=== PATIENT | female | born 1955 | race Caucasian/White ===

== ENCOUNTER → 2017-03-31 | Day surgery (SDC) | payer OTHER ==
--- NOTE | 2017-03-30 11:49 | MH ---
cc: Alejandra VALADEZ DATE OF ADMISSION 03/31/2017 ADMITTING DIAGNOSIS Torn medial meniscus right knee now for arthroscopy right knee. ADMISSION HISTORY AND PHYSICAL This pleasant 62-year female is being admitted today for arthroscopic surgery right knee due to a torn medial meniscus and chondromalacia. OTHER PAST HISTORY The patient has a history of: 1. Anxiety 2. Arthritis 3. Depression 4. Fibromyalgia 5. Back pain CURRENT MEDICATIONS Include: 1. Lexapro 2. Vitamin D 3. Flexeril PAST SURGERIES Includes a hysterectomy. REVIEW OF SYSTEMS Noncontributory FAMILY HISTORY Noncontributory. She does not smoke or drink. ALLERGIES She has no known allergies. PHYSICAL EXAMINATION We find a 62-year female well-developed, well-nourished oriented x3 complaining of pain in her right knee. VITAL SIGNS: Blood pressure 120/82, pulse 80 and regular, respirations 18, temperature 97.9, pulse oximetry 98% on room air. HEENT: Eyes PERRL, EOMI. Ears, nose, mouth clear. NECK: Supple. LUNGS: Clear. HEART: Regular rate. ABDOMEN: Soft. Positive bowel sounds, nontender. EXTREMITIES: Reveals the right knee be tender on palpation on the medial joint surface. She is neurovascularly intact to her toes. IMPRESSION Torn medial meniscus right knee along with chondromalacia. PLAN Admission for arthroscopy right knee today. The patient given prescription for postop pain control in the office. Understands she is to use Hibiclens scrub and Bactroban preoperatively. MD ALETHA Dumont/SHENG /11:34 AM /11:37 AM
[~2017-03-31] VITALS: Ht 170.2 cm; Wt 101.9 kg
[~2017-03-31] MED LIST: *morphine SULFATE 8 MG/ML PERIprocedure ONLY ONE; ACETAMINOPHEN 1000 MG/100 ML VIAL IV ONE; ACETAMINOPHEN/HYDROcodone 325 MG/5 MG TAB PO PRN; BUPIVACAINE HCL PF 0.25% 30 ML VIAL ONE; CHLORHEXIDINE GLUCONATE 2 % 1 PACK (2 CLOTHS) TOPICAL PRN; CHLORHEXIDINE GLUCONATE 4% SOLN 120 ML BTL TOPICAL SCH; CHOL1CAP34 PO; CYCL1TAB29 PO; DEXAMETHASONE SOD PHOS 4 MG/ML VIAL ONE; DICL50TA3 PO; DO NOT ADM ANY ANTICOAGULANT DRUGS PRN; ESTR1TAB PO; FAMOTIDINE 20 MG/2 ML VIAL ONE; INSULIN HUMAN REGULAR 1,000 UNITS/10 ML VIAL SQ PRN; LACTATED RINGER'S 1000 ML INJ 1,000 ML IV ONE; LACTATED RINGER'S 1000 ML IV PRN; LEXA10TA PO; MEPERIDINE HCL 50 MG/ML VIAL IM PRN; METOPROLOL TARTRATE 25 MG TAB PO PRN; MIDAZOLAM HCL 2 MG/2 ML VIAL ONE; MULT-65 PO; ONDANSETRON HCL 4 MG/2 ML VIAL IV PUSH ONE; ONDANSETRON ODT 4 MG TAB PO PRN; POVIDONE IODINE 5% (ANTISEPSIS KIT) 4 APPLICATIONS EACH NARE PRN; PROPOFOL 200 MG/20 ML AMP IV ONE; SODIUM CHLORID 0.9% 500 ML IV PRN; ceFAZolin 2 GM PREMIX 50 ML IV SCH; fentaNYL CITRATE 250 MCG/5 ML AMP ONE
[2017-03-31 06:57] VITALS: BP 126/69; PULSE 78; RESP 20; TEMP 97.6; O2SAT 97
[2017-03-31 07:03] LABS: AUTOMATED NEUTROPHIL # 2.1 TH/MM3 (1.8-7.7); BASOPHIL % 0.9 % (0.0-2.0); EOSINOPHIL # 0.1 TH/MM3 (0-0.4); EOSINOPHIL % 2.3 % (0.0-4.0); HEMATOCRIT 39.4 % (35.0-46.0); HEMO FLAGS DIFF FINAL; LYMPH % 38.2 % (9.0-44.0); LYMPHOCYTE # 1.6 TH/MM3 (1.0-4.8); MEAN CELL VOLUME 91.9 FL (80.0-100.0); MEAN CORPUSCULAR HEMOGLOBIN 31.1 PG (27.0-34.0); MEAN CORPUSCULAR HGB CONC 33.8 % (32.0-36.0); MONO % 9.6 % (0.0-8.0); PLATELET COUNT 202 TH/MM3 (150-450); RED BLOOD COUNT 4.29 MIL/MM3 (4.00-5.30); RED CELL DISTRIBUTION WIDTH 12.9 % (11.6-17.2); WHITE BLOOD COUNT 4.2 TH/MM3 (4.0-11.0)
[2017-03-31 07:25] LABS: ALT (GPT) 23 U/L (10-53)
[2017-03-31 07:28] LABS: ALKALINE PHOSPHATASE 83 U/L (45-117); TOTAL BILIRUBIN ADULT 0.5 MG/DL (0.2-1.0)
[2017-03-31 07:31] LABS: ANION GAP 5 MEQ/L (5-15); AST (GOT) 24 U/L (15-37); BICARBONATE 27.8 MEQ/L (21.0-32.0); BLOOD UREA NITROGEN 15 MG/DL (7-18); CHLORIDE 105 MEQ/L (98-107); GLOMERULAR FILTRATION RATE 81 ML/MIN (>89); POTASSIUM 4.3 MEQ/L (3.5-5.1); SODIUM (NA) 138 MEQ/L (136-145)
[2017-03-31 08:01] LABS: INTERNATIONAL NORMALIZED RATIO 0.9 RATIO; PROTHROMBIN TIME - PATIENT 10.4 SEC (9.8-11.6)
--- NOTE | 2017-03-31 08:54 | EKG ---
Date Performed: 03/31/2017 Time Performed: 06:53:58 PTAGE: 62 years EKG: Sinus rhythm LOW QRS VOLTAGE IN PRECORDIAL LEADS BORDERLINE ECG PREVIOUS TRACING : 10/05/2010 10.51 Compared to prior tracing no significant change DOCTOR: Norm Wen Interpretating Date/Time 03/31/2017 08:51:04
--- NOTE | 2017-03-31 09:48 | HHI.PR ---
Immediate Post Op Note Procedure Date: Mar 31, 2017 Pre Op Diagnosis: Torn medial meniscus Post Op Diagnosis: Torn Medial meniscus Chondromalacia Severe degenerative osteoarthritis Surgeon: Rodrigue Rea MD Orthopaedic Physician Assistant(s): Renetta BACON Procedure: Right Knee Arthroscopy with debridement Complications: none Specimen(s) removed: none Estimated blood loss: 10cc Anesthesia: General Drains: None Patient to: PACU Patient Condition: Good Date/Time of Procedure: SEE SURGICAL CARE RECORD Renetta Marshall Mar 31, 2017 09:48
[2017-03-31 10:50] VITALS: BP 125/74; PULSE 78; RESP 18; TEMP 97.1; O2SAT 98
--- NOTE | 2017-03-31 13:07 | MP ---
cc: Alejandra VALADEZ M.D. Corrected: 04/14/17 DATE OF SURGERY 03/31/2017 PREOPERATIVE DIAGNOSIS Torn medial meniscus right knee. POSTOPERATIVE DIAGNOSES 1. Torn medial meniscus right knee. 2. Severe chondromalacia and osteoarthritic degeneration medial compartment right knee. SURGERY PERFORMED Arthroscopy, excision of torn medial meniscus and chondroplasty medial compartment right knee. SURGEON Dr. Valadez CAPSULE INSPECTOR ARLEEN Esposito ANESTHESIA LMA. PROCEDURE The patient was brought to the operating room and placed on the operating room table in the supine position. After successful induction of general anesthesia, the patient's right leg was prepped and draped in the usual manner. The knee was then placed in a knee agrawal and tightened. Arthroscopic examination was then performed by making a stab wound over the proximal superior and medial aspect of the patellofemoral joint for insertion of the inflow cannula and fluid, followed by stab wounds over the medial and lateral joint margins respectively for insertion of the arthroscope, shaver and probe. Arthroscopic examination was then performed which revealed intact lateral compartment, intact anterior cruciate ligament. Minimal arthritis noted in the patellofemoral joint, severe osteoarthritic degeneration noted in the medial compartment with torn medial meniscus and chondromalacia changes, Grade IV. These areas were smoothed using the ArthroCare System to remove the small torn medial meniscus and smooth out the chondromalacia of the medial compartment. The knee was then irrigated copiously with lactated Ringer's solution and 18 cc of 0.25% Marcaine plain with 2 cc of Decadron were inserted into the knee joint. The skin was approximated with interrupted 2-0 nylon suture. Wet and then dry dressing was applied to the wound, followed by Xeroform gauze, sterile dressing and thigh-high Stephen wrap. TOURNIQUET TIME No tourniquet utilized. ESTIMATED BLOOD LOSS The estimated blood loss was 10 cc. COUNTS Sponge and suture counts were correct. NOTE ARLEEN Esposito was present during the entire procedure to include patient positioning and the procedure. The medical necessity of a nurse practitioner as phlebotomist lab assistant was indicated in this case due to the surgical complexity of the case itself. During the surgical case the ophthalmic surgical assistant was working at the back table while my director medical surgical ARLEEN was directly assisting me. The patient tolerated the procedure well and left the operating room in satisfactory condition. J. MD ALETHA Farrar/SSB /9:18 AM /12:53 PM MTDD
== END | disposition home or self-care (01) ==
LOC: HSDC 05:59
PROVIDERS: ATTEND Surgery
DX: S83.241A Other tear of medial meniscus, current injury, right knee, initial encounter (principal); M94.261 Chondromalacia, right knee; Z01.810 Encounter for preprocedural cardiovascular examination; Z01.812 Encounter for preprocedural laboratory examination
CPT/HCPCS: 01400; 29881; 80053; 85025; 85610; 85730; 93005; E0113; J0131; J1100; J2250; J2270; J2405; J3010; J7120